=== PATIENT | male | born 1980 | race Caucasian/White ===

== ENCOUNTER 2018-03-03 09:37 | Emergency (ER) | payer BC, SELFPAY ==
[2018-03-03 09:38] VITALS: BP 146/88; PULSE 89; RESP 18; TEMP 36.4; O2SAT 99; BMI 32.6
--- NOTE | 2018-03-03 09:42 | NURSING ---
NO OLD EKGS
[2018-03-03 09:44] VITALS: BP 129/72; PULSE 87; RESP 18; O2SAT 100
--- NOTE | 2018-03-03 09:53 | CT_ITS ---
STUDY: CTA CHEST REASON FOR EXAM: Male, 38 years old. Dizziness, shortness of breath and chest pain. Patient fell off camper 3 days ago. Left rib pain. RADIATION DOSAGE (If Supplied By Facility): CTDIvol = ( 11.99 ) mGy, DLP = ( 717.44 ) mGycm TECHNIQUE: The examination was performed with the intravenous administration of 100 ml of Isovue 370 contrast material. Post-processing of the angiographic images was performed, with multiplanar reformation. Individualized dose optimization techniques were used for this CT. COMPARISON: None. FINDINGS: Normal enhancement of the main pulmonary artery and right and left pulmonary arteries. There is limited enhancement of the bilateral peripheral pulmonary arteries. There are however decreased enhancement filling defects in the peripheral branches of right lower lobe suggestive of pulmonary embolism although the examination is somewhat limited due to artifacts. Small filling defects are also seen in the peripheral branches of left lower lobe pulmonary artery. Normal thoracic aorta and visualized great vessels. There is no demonstrated aortic dissection. Normal heart and pericardium. Normal mediastinum. Normal hilar regions. Normal visualized trachea and bronchi. The lungs are well expanded. There is an irregular soft tissue density in the left lower lobe measuring about 1.7 cm which could represent focal pneumonic process. Tumor cannot be excluded. There are no pleural effusions. Normal chest wall structures. There is no demonstrated rib fracture or acute osseous changes. Normal visualized upper abdomen. CT/CTA Chest W/WO Contrast IMPRESSION: 1. Filling defects in the peripheral branches of the pulmonary arteries particularly in the right lower lobe suggestive of small pulmonary emboli however the examination is limited due to suboptimal enhancement of the peripheral branches and artifacts. 2. Irregular small soft tissue density in the left lower lobe which could represent focal pneumonic process. Tumor cannot be excluded. Follow-up examination following treatment is recommended. Electronically Signed: Waldemar Healy MD at 11:06 EDT Tel , Service support ,
--- NOTE | 2018-03-03 09:53 | EKG12_ITS ---
Test Reason : CP Blood Pressure : / mmHG Vent. Rate : 080 BPM Atrial Rate : 080 BPM P-R Int : 142 ms QRS Dur : 096 ms QT Int : 362 ms P-R-T Axes : 039 041 012 degrees QTc Int : 417 ms Normal sinus rhythm Normal ECG Confirmed by NICOLE AG ([id number]), purchase request editor RICARDO AWAD ([id number]) on 03/06/2018 8:38:26 AM Referred By: CHALINO Confirmed By:NICOLE AG
[2018-03-03 09:55] VITALS: O2SAT 100
[2018-03-03 10:01] LABS: Absolute Lymphocyte Count 1.24 X10^3/ul (0.83-4.51); Absolute Neutrophil Count 4.7 X10^3/uL (2.0-7.7); Basophil# 0.02 X10^3/uL; Basophil% 0.3 % (0-1); Eosinophil# 0.06 X10^3/uL; Eosinophils% 0.9 % (0-5); Hematocrit 44.6 % (40-54); Hemoglobin 15.1 g/dl (13.0-16.5); Lymphocyte # 1.24 X10^3/ul (4.0); Lymphocyte % 17.6 % (19-41); Mean Corp Hgb Conc 33.9 g/gl (32-36); Mean Corpuscular Hgb 30.9 pg (27.0-32.0); Mean Corpuscular Volume 91.4 fL (80-94); Mean Platelet Vol. 9.8 fl (6.2-12.0); Monocyte# 1.05 X10^3/uL; Monocyte% 14.9 % (0-10); Neutrophil # 4.66 X10^3/uL (2.7-7.7); Neutrophil % 66.2 % (47-70); Platelet Count 194 K/mm3 (150-450); RBC Distribution Width CV 12.5 % (11.6-14.6); RBC Distribution Width SD 41.1 fl (35.1-43.9); Red Blood Count 4.88 M/mm3 (4.6-6.2)
[2018-03-03 10:06] LABS: POSITIVE COUNT NO; POSITIVE DIFFERENTIAL NO; POSITIVE MORPHOLOGY NO
[2018-03-03 10:18] LABS: Anion Gap 6 (5-15); BUN 11 mg/dL (7-18); BUN/Creat Ratio 10.4 RATIO (10-20); Calcium,Total 8.7 mg/dL (8.5-10.1); Chloride 105 mmol/L (98-107); Creatinine, Serum 1.06 mg/dL (0.70-1.30); EST Glomerular Filtration Rate 83 mL/min (>60); Est Glom Filt Rate - Afr Amer 101 mL/min (>60); Estimated Creatinine Clearance 91.42 ml/min; Glucose 91 mg/dL (74-106); Potassium 4.2 mmol/L (3.5-5.1); Sodium Level 138 mmol/L (136-145)
[2018-03-03 10:46] VITALS: BP 121/69; PULSE 77; RESP 16; O2SAT 98
--- NOTE | 2018-03-03 11:33 | ED.VISSUMM ---
- ER Visit Summary Date of Service: 03/03/18 Chief Complaint: Chest pain shortness of breath History of Present Illness: The patient is a 38 M who has recently returned home from [place]. 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 States he landed more in a sitting position and other than some generalized soreness he really did not have any other injuries. He drove home after arriving home he had to have some intermittent chest discomfort. Today he was driving developed chest tightness across both sides and states his face hands felt numb. He felt dizzy. He felt the discomfort in his back particularly the left upper back. He has a history of hypertension hypercholesterolemia is not currently being treated for that. His mom had early heart disease. He is a non-smoker. Physical Examination: Afebrile vital signs are stable pulse ox 99% on room air heart rate of 89 Gen: Well-nourished well-developed Head: Normocephalic atraumatic Eyes: Perrl EOMI ENT: TMs clear no rhinorrhea moist mucous membranes Neck: Supple no lymphadenopathy no JVD nontender CVS: Regular rate rhythm no murmurs normal S1-S2 Respiratory: No distress clear to auscultation bilaterally chest nontender Abdomen: Soft nontender nondistended normal bowel sounds no masses Back: Nontender Extremity: Nontender no edema Skin: Normal color no rash Neuro: alert orientated ?3 CN II-XII intact normal strength sensation reflexes gait cerebellar Psych: Normal affect normal mood Test Results: EKG shows a sinus rhythm at a rate of 80. CBC chemistries and troponin were negative. CT Kaya of the chest is positive for pulmonary embolism. Emergency Department Course and Treatment: Patient appears low risk using a PESI score. I am going to write him for Eliquis and give him a pharmacy card. He needs to establish primary care. He is from [place] but states he can follow-up with somebody here. Impression: 1. Pulmonary embolism This note was generated with [employer] dictation software. It may contain incorrect words, spelling, and punctuation that were not noted in review of the chart prior to signing ED Disposition - Plan for ED Patient: Disposition: Home or Assisted Living Chief Complaint: Chest Pain Instructions: Pulmonary Embolism Prescriptions: Apixaban [Eliquis] 5 mg PO BID #74 tablet Referrals: Ban Luz MD [STAFF PHYSICIAN] - As soon as possible
--- NOTE | 2018-03-03 11:51 | ED.DCSUM_ITS ---
- ER Visit Summary Date of Service: 03/03/18 Chief Complaint: Chest pain shortness of breath History of Present Illness: The patient is a 38 M who has recently returned home from [place]. 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 States he landed more in a sitting position and other than some generalized soreness he really did not have any other injuries. He drove home after arriving home he had to have some intermittent chest discomfort. Today he was driving developed chest tightness across both sides and states his face hands felt numb. He felt dizzy. He felt the discomfort in his back particularly the left upper back. He has a history of hypertension hypercholesterolemia is not currently being treated for that. His mom had early heart disease. He is a non-smoker. Physical Examination: Afebrile vital signs are stable pulse ox 99% on room air heart rate of 89 Gen: Well-nourished well-developed Head: Normocephalic atraumatic Eyes: Perrl EOMI ENT: TMs clear no rhinorrhea moist mucous membranes Neck: Supple no lymphadenopathy no JVD nontender CVS: Regular rate rhythm no murmurs normal S1-S2 Respiratory: No distress clear to auscultation bilaterally chest nontender Abdomen: Soft nontender nondistended normal bowel sounds no masses Back: Nontender Extremity: Nontender no edema Skin: Normal color no rash Neuro: alert orientated ?3 CN II-XII intact normal strength sensation reflexes gait cerebellar Psych: Normal affect normal mood Test Results: EKG shows a sinus rhythm at a rate of 80. CBC chemistries and troponin were negative. CT Kaya of the chest is positive for pulmonary em bolism. Emergency Department Course and Treatment: Patient appears low risk using a PESI score. I am going to write him for Eliquis and give him a pharmacy card. He needs to establish primary care. He is from [place] but states he can follow- up with somebody here. Impression: 1. Pulmonary embolism This note was generated with [employer] dictation software. It may contain incorrect words, spelling, and punctuation that were not noted in review of the chart prior to signing ED Disposition - Plan for ED Patient: Disposition: Home or Assisted Living Chief Complaint: Chest Pain Instructions: Pulmonary Embolism Prescriptions: Apixaban [Eliquis] 5 mg PO BID #74 tablet Referrals: Ban Luz MD [STAFF PHYSICIAN] - As soon as possible
[2018-03-03 12:22] VITALS: BP 121/74; PULSE 78; RESP 14; O2SAT 97; O2SAT 98
== END 2018-03-03 12:24 | disposition home or self-care (01) ==
PROVIDERS: Emergency Provider Emergency Medicine
DX: I26.99 Other pulmonary embolism without acute cor pulmonale (principal); I10 Essential (primary) hypertension; E78.00 Pure hypercholesterolemia, unspecified
CPT/HCPCS: 71275; 80048; 84484; 85025; 93005; 99284; Q9967; A4216